=== PATIENT | male | born 1960 | race Caucasian/White ===

== ENCOUNTER 2018-07-02 20:50 | Emergency (ER) | payer BC, OTHER ==
[2018-07-02 21:25] VITALS: BP 153/106; PULSE 91; RESP 12; TEMP 98; O2SAT 100
== END 2018-07-02 22:40 | disposition home or self-care (01) ==
LOC: ED 20:50
DX: S90.32XA Contusion of left foot, initial encounter (principal); S90.31XA Contusion of right foot, initial encounter; R20.2 Paresthesia of skin; R20.8 Other disturbances of skin sensation; I10 Essential (primary) hypertension
CPT/HCPCS: 99282